=== PATIENT | female | born 1950 | race Caucasian/White ===

== ENCOUNTER 2021-12-13 07:09 | Inpatient (IN) ==
[2021-12-13 08:03] LABS: ABS Lymphocytes 1.7 10^3/ul (1.0-4.8); ABS Monocytes 0.5 10^3/ul (0-0.8); ABS Neutrophils 6.1 10^3/ul (1.5-7.7); Eosinophil % 0.5 %; Hematocrit 41 % (35-47); Lymphocyte % 20.2 %; Mean Corpuscular HGB Conc 34 g/dL (31-36); Mean Corpuscular Hemoglobin 30 pg (27-31); Mean Corpuscular Volume 89 fL (80-97); Mean Platelet Volume 8.8 fL (7.4-10.4); Platelet Count 171 10^3/uL (150-450); Red Blood Count 4.65 10^6 /uL (3.70-4.87); Red Cell Distribution Width 14 % (10-15); White Blood Count 8.3 10^3/uL (3.5-10.8)
[2021-12-13 08:04] LABS: Urine Appearance Cloudy; Urine Bilirubin Negative (Negative); Urine Blood Negative (Negative); Urine Color Yellow; Urine Glucose Negative (Negative); Urine Ketones Negative (Negative); Urine Nitrite Negative (Negative); Urine Protein Negative (Negative); Urine Specific Gravity 1.029 (1.002-1.030); Urine Urobilinogen Negative (Negative)
[2021-12-13 08:07] LABS: Urine Bacteria Absent (Absent); Urine Red Blood Cell 2+(6-10/hpf) (Absent); Urine Squamous Epithelial Cell Present (Absent); Urine White Blood Cell 2+(11-20/hpf) (Absent)
[2021-12-13 08:22] LABS: ALT 26 U/L (7-52); AST 16 U/L (13-39); Albumin 4.1 g/dL (3.2-5.2); Albumin/Globulin Ratio 2.1 (1-3); Alkaline Phosphatase 82 U/L (35-149); Anion Gap 5 mmol/L (2-11); Blood Urea Nitrogen 18 mg/dL (6-24); CO2 Carbon Dioxide 28 mmol/L (22-32); Calcium 9.2 mg/dL (8.6-10.3); Chloride 104 mmol/L (101-111); Glucose 138 mg/dL (70-100); Potassium 3.8 mmol/L (3.5-5.0); Sodium 137 mmol/L (135-145); Total Protein 6.1 g/dL (6.4-8.9); eGFR CKD-EPI 91.3 (>60)
[2021-12-13 08:25] LABS: Urine Benzodiazepine Screen Presumptive Positive (None Detect); Urine Cannabinoids Screen None Detected (None Detect); Urine Opiates Screen None Detected (None Detect)
[2021-12-13 09:21] LABS: Acetaminophen < 15 mcg/mL; Alcohol, S < 13 mg/dL (<13); Salicylate < 2.50 mg/dL (<30)
[2021-12-13] MEDS ORDERED: Al Hydrox/Mg Hydrox/Simet LIQ 30 ML UDC PO PRN (14:32)
[2021-12-13] MEDS ORDERED: diphenhydraMINE PO* 50 MG Q8H PRN AGITATION or INSOMNIA PO (14:33)
[2021-12-14 07:02] LABS: HDL Cholesterol 39.4 mg/dL
[2021-12-14] MEDS: Vitamin THERAPEUTIC TAB PO SCH (10:40)
[2021-12-15 08:04] LABS: Vitamin D Total 25(OH) 32.7 ng/mL (20-50)
[2021-12-15] MEDS: Vitamin THERAPEUTIC TAB PO SCH (08:40)
[2021-12-16] MEDS: Vitamin THERAPEUTIC TAB PO SCH (07:48)
[2021-12-17 08:40] VITALS: BP 114/59
[2021-12-17] MEDS: Vitamin THERAPEUTIC TAB PO SCH (09:35)
== END 2021-12-17 12:40 | disposition home or self-care (01) | DRG 880 ==
LOC: ED 07:09 → EDHOLD 12:34 → BSU 14:15
PROVIDERS: ADMIT Psychiatry & Neurology Addiction Psychiatry; ATTEND Psychiatry & Neurology Psychiatry

== ENCOUNTER 2021-12-18 14:57 | Inpatient (IN) ==
[2021-12-18 15:42] LABS: ABS Eosinophils 0.1 10^3/ul (0-0.6); ABS Lymphocytes 1.9 10^3/ul (1.0-4.8); ABS Monocytes 0.4 10^3/ul (0-0.8); ABS Neutrophils 5.7 10^3/ul (1.5-7.7); Eosinophil % 0.9 %; Hematocrit 43 % (35-47); Hemoglobin 14.5 g/dL (12.0-16.0); Lymphocyte % 23.7 %; Mean Corpuscular HGB Conc 34 g/dL (31-36); Mean Corpuscular Hemoglobin 31 pg (27-31); Mean Corpuscular Volume 90 fL (80-97); Platelet Count 170 10^3/uL (150-450); Red Blood Count 4.74 10^6 /uL (3.70-4.87); Red Cell Distribution Width 15 % (10-15); White Blood Count 8.1 10^3/uL (3.5-10.8)
[2021-12-18 15:58] LABS: ALT 22 U/L (7-52); AST 16 U/L (13-39); Albumin 4.2 g/dL (3.2-5.2); Albumin/Globulin Ratio 1.8 (1-3); Alkaline Phosphatase 84 U/L (35-149); Anion Gap 4 mmol/L (2-11); Blood Urea Nitrogen 21 mg/dL (6-24); CO2 Carbon Dioxide 29 mmol/L (22-32); Calcium 9.4 mg/dL (8.6-10.3); Chloride 107 mmol/L (101-111); Globulin 2.3 g/dL (2-4); Glucose 117 mg/dL (70-100); Potassium 4.1 mmol/L (3.5-5.0); Sodium 140 mmol/L (135-145); Total Protein 6.5 g/dL (6.4-8.9)
[2021-12-18 16:00] LABS: Urine Benzodiazepine Screen None Detected (None Detect); Urine Cannabinoids Screen None Detected (None Detect); Urine Opiates Screen None Detected (None Detect)
[2021-12-18 16:09] LABS: Urine Appearance Cloudy; Urine Bilirubin Negative (Negative); Urine Blood Negative (Negative); Urine Color Yellow; Urine Glucose Negative (Negative); Urine Ketones Negative (Negative); Urine Nitrite Negative (Negative); Urine Protein Negative (Negative); Urine Specific Gravity 1.026 (1.002-1.030); Urine Urobilinogen Negative (Negative)
[2021-12-18 16:20] LABS: Urine Bacteria Absent (Absent); Urine Red Blood Cell Trace(0-2/hpf) (Absent); Urine Squamous Epithelial Cell Present (Absent); Urine White Blood Cell 3+(>20/hpf) (Absent)
[2021-12-18 16:35] LABS: Acetaminophen < 15 mcg/mL; Alcohol, S < 13 mg/dL (<13); Salicylate < 2.50 mg/dL (<30)
[2021-12-18 16:42] LABS: TSH Ultra Thyroid Stim Horm 1.52 mcIU/mL (0.34-5.60)
[2021-12-18] MEDS ORDERED: Al Hydrox/Mg Hydrox/Simet LIQ 30 ML UDC PO PRN (21:15)
[2021-12-19 08:22] LABS: HDL Cholesterol 35.5 mg/dL
[2021-12-19] MEDS: Vitamin THERAPEUTIC TAB PO SCH (08:44)
[2021-12-20] MEDS: Vitamin THERAPEUTIC TAB PO SCH (08:10)
[2021-12-21] MEDS: Vitamin THERAPEUTIC TAB PO SCH (08:41)
[2021-12-22] MEDS: Vitamin THERAPEUTIC TAB PO SCH (08:50)
[2021-12-23] MEDS: Vitamin THERAPEUTIC TAB PO SCH (08:33)
[2021-12-25 07:46] VITALS: BP 128/70
== END 2021-12-25 11:35 | disposition home or self-care (01) | DRG 880 ==
LOC: ED 14:57 → BSU 16:55
PROVIDERS: ADMIT Student in an Organized Health Care Education/Training Program; ATTEND Psychiatry & Neurology Psychiatry